=== PATIENT | female | born 1975 | race African-American/Black ===

== ENCOUNTER 2020-11-30 11:16 | Emergency (ER) | payer BC, OTHER | END 2020-11-30 12:08 | disposition home or self-care (01) | LOC: MADERS 11:16 | DX: M54.31 Sciatica, right side (principal); M79.10 Myalgia, unspecified site; Z79.899 Other long term (current) drug therapy | CPT/HCPCS: 99283 ==

== ENCOUNTER 2025-06-07 04:31 | Emergency (ER) | payer BC | END 2025-06-07 05:35 | disposition home or self-care (01) | LOC: MADERS 04:31 | DX: L76.34 Postprocedural seroma of skin and subcutaneous tissue following other procedure (principal); C78.7 Secondary malignant neoplasm of liver and intrahepatic bile duct; C18.9 Malignant neoplasm of colon, unspecified | CPT/HCPCS: 99283 ==

== ENCOUNTER 2025-07-13 22:42 | Emergency (ER) | payer BC | END 2025-07-14 00:17 | disposition home or self-care (01) | LOC: MADERS 22:42 | DX: T82.898A Other specified complication of vascular prosthetic devices, implants and grafts, initial encounter (principal) | CPT/HCPCS: 99283 ==